=== PATIENT | female | born 1975 | race African-American/Black ===

== ENCOUNTER 2018-12-12 22:43 | Emergency (ER) | payer BC, MEDICAID ==
[~2018-12-12] VITALS: Ht 154.9 cm; Wt 104.5 kg
[2018-12-13 01:47] VITALS: BP 138/95
== END 2018-12-13 02:33 | disposition home or self-care (01) ==
LOC: EMS 22:44
DX: S39.012A Strain of muscle, fascia and tendon of lower back, initial encounter (principal); I10 Essential (primary) hypertension; X50.9XXA Other and unspecified overexertion or strenuous movements or postures, initial encounter; Y93.89 Activity, other specified; Y92.89 Other specified places as the place of occurrence of the external cause; Y99.8 Other external cause status

== ENCOUNTER 2022-05-16 08:44 | Emergency (ER) | payer MEDICAID, OTHER ==
[~2022-05-16] VITALS: Ht 152.4 cm; Wt 100.0 kg
[2022-05-16] MEDS ORDERED: ALBUTEROL SULFATE HFA 90 MCG/PUFF 8 GM INHALER IH ONE (09:00)
[2022-05-16] MEDS ORDERED: BACITRACIN 0.9 GM PACKET OINTMENT TP ONE (09:00)
[2022-05-16 09:13] VITALS: BP 142/79
[2022-05-16 12:05] LABS: COVID AG,FIA SOURCE NASAL SWAB
[2022-05-16 12:23] LABS: INFLUENZA TYPE A NEGATIVE FOR TYPE A (NEGATIVE); INFLUENZA TYPE B NEGATIVE FOR TYPE B (NEGATIVE)
[2022-05-16] MEDS ORDERED: IBUP-1554 PO (12:34)
== END 2022-05-16 13:17 | disposition home or self-care (01) ==
LOC: EMS 08:46
DX: J45.901 Unspecified asthma with (acute) exacerbation (principal); S90.121A Contusion of right lesser toe(s) without damage to nail, initial encounter; S60.212A Contusion of left wrist, initial encounter; S91.204A Unspecified open wound of right lesser toe(s) with damage to nail, initial encounter; I10 Essential (primary) hypertension; Z98.890 Other specified postprocedural states; Z20.822 Contact with and (suspected) exposure to COVID-19; V43.52XA Car driver injured in collision with other type car in traffic accident, initial encounter; Y93.89 Activity, other specified; Y92.410 Unspecified street and highway as the place of occurrence of the external cause; Y99.8 Other external cause status
CPT/HCPCS: 71045; 87804; 94640; 99284; J3535

== ENCOUNTER 2025-02-03 20:33 | Inpatient (IN) | payer OTHER ==
[~2025-02-03] VITALS: Ht 154.9 cm; Wt 124.0 kg
[~2025-02-03 20:33] MED LIST: IBUP-1554 PO
[2025-02-03] MEDS: FUROSEMIDE 20 MG/2 ML VIAL IVP ONE (22:44)
[2025-02-03] MEDS: NITROGLYCERIN 2% (1 GM=INCH) OINTMENT PACKET TP ONE (22:44)
[2025-02-03 23:04] LABS: PLATELET COUNT (AUTO) 286 K/uL (150-450); RED BLOOD CELL COUNT(AUTO) 4.71 MIL/uL (4.00-5.20); RED CELL DISTRIBUTION WIDTH 16.0 % (11.5-14.5); WHITE BLOOD COUNT (AUTO) 9.7 K/uL (4.5-11.0)
[2025-02-03] MEDS: IPRATROPIUM BROMIDE 0.5 MG/2.5 ML NEB SOLUTION NEB ONE (23:04)
[2025-02-03] MEDS: ALBUTEROL SULFATE 2.5 MG/0.5 ML NEB SOLUTION NEB ONE (23:04)
[2025-02-03 23:09] LABS: CALCIUM, TOTAL 9.3 mg/dL (8.8-10.5); CREATININE 1.25 mg/dL (0.60-1.30); GLOMERULAR FILTR. RATE CALC 55 mL/min (>60); GLUCOSE,RANDOM 100 mg/dL (70-110); SODIUM SERUM 143 mmol/L (136-145); UREA NITROGEN, BLOOD 11 mg/dL (7-18)
[2025-02-03 23:10] VITALS: PULSE 102; RESP 18; O2SAT 95
[2025-02-03 23:18] LABS: TROPONIN I-HIGH SENSITIVITY 60 ng/L (<51)
[2025-02-03 23:25] VITALS: PULSE 104; RESP 20; O2SAT 100
[2025-02-03 23:27] LABS: CREATINE KINASE, TOTAL ONLY 268 U/L (26-192)
[2025-02-03] MEDS ORDERED: ACETAMINOPHEN 325 MG TABLET PO PRN (23:45)
[2025-02-03] MEDS ORDERED: ONDANSETRON HCL 4 MG/2 ML VIAL IVP PRN (23:45)
[2025-02-04] VITALS (8 sets, daily range): BP systolic 132–151; BP diastolic 85–103; PULSE 95–108; RESP 18–20; TEMP 97.7–98.6; O2SAT 91–98
[2025-02-04] MEDS: HEPARIN SODIUM,PORCINE 5,000 UNITS/ML VIAL SQ SCH
[2025-02-04 01:56] LABS: TROPONIN I-HIGH SENSITIVITY 47 ng/L (<51)
[2025-02-04 02:19] LABS: PH,URINE DRUG SCREEN 7.0 (5.0-8.0)
[2025-02-04 02:20] LABS: APPEARANCE,URINE CLEAR (CLEAR); GLUCOSE, URINE (UA) NEGATIVE (NEGATIVE); LEUKOCYTE ESTERASE ,URINE TRACE (NEGATIVE); OCCULT BLOOD,URINE NEGATIVE (NEGATIVE); SPECIFIC GRAVITIY, URINE 1.006 (1.003-1.030)
[2025-02-04 02:21] LABS: NITRATE,URINE NEGATIVE (NEGATIVE)
[2025-02-04 02:22] LABS: SQUAMOUS EPITHELIAL CELL,UR Few /LPF (None Seen)
[2025-02-04 02:25] LABS: AMPHET/METH SCREEN,URINE POSITIVE (NEGATIVE); BARBITURATE SCREEN, URINE NEGATIVE (NEGATIVE); CANNABINOID SCREEN,URINE NEGATIVE (NEGATIVE); COCAINE SCREEN,URINE NEGATIVE (NEGATIVE); METHADONE SCREEN, URINE NEGATIVE (NEGATIVE)
[2025-02-04 02:28] LABS: ALCOHOL, URINE DRUG SCREEN NEGATIVE (NEGATIVE)
[2025-02-04 06:57] LABS: TROPONIN I-HIGH SENSITIVITY 51 ng/L (<51)
[2025-02-04] MEDS: DOCUSATE SODIUM 100 MG CAPSULE PO SCH (08:55)
[2025-02-04] MEDS: FAMOTIDINE 20 MG TABLET PO SCH (08:55)
[2025-02-04] MEDS: CLOTRIMAZOLE 1%/BETAMETH DIP 0.05% 15 GM CREAM TP SCH (20:28)
[2025-02-04] MEDS ORDERED: 0.9% SODIUM CHLORIDE 5 ML NEB SOLUTION NEB ONE (21:54)
[2025-02-04] MEDS: ALBUTEROL SULFATE 2.5 MG/0.5 ML NEB SOLUTION NEB PRN (21:55)
[2025-02-05] VITALS: BP 134/78; PULSE 58; RESP 19; TEMP 98.2; O2SAT 94
[2025-02-05 04:03] VITALS: BP 150/84; PULSE 107; RESP 19; TEMP 98.8; O2SAT 96
[2025-02-05 07:56] VITALS: BP 137/92; PULSE 110; RESP 17; TEMP 98.1; O2SAT 100
[2025-02-05] MEDS: FUROSEMIDE 20 MG TABLET PO SCH (11:19)
[2025-02-05] MEDS: METOPROLOL SUCCINATE 25 MG ER TABLET PO SCH (11:19)
[2025-02-05 12:05] VITALS: BP 118/70; PULSE 106; RESP 17; TEMP 97.7; O2SAT 99
[2025-02-05 16:00] VITALS: BP 135/87; PULSE 100; RESP 19; TEMP 97.5; O2SAT 97
[2025-02-05 20:22] VITALS: BP 108/77; PULSE 103; RESP 20; TEMP 98.2; O2SAT 94
[2025-02-06 00:46] VITALS: BP 133/75; PULSE 101; RESP 18; TEMP 98.6; O2SAT 95
[2025-02-06 04:00] VITALS: BP 134/86; PULSE 100; RESP 19; TEMP 98.6; O2SAT 93
[2025-02-06 08:28] VITALS: BP 94/68; PULSE 101; RESP 19; TEMP 98.4; O2SAT 98
[2025-02-06] MEDS ORDERED: POTA8TAB71 PO (10:05)
[2025-02-06] MEDS ORDERED: FURO20TA5 PO (10:05)
[2025-02-06] MEDS ORDERED: ALBU18HF12 IH (10:06)
== END 2025-02-06 10:30 | disposition home or self-care (01) | DRG 133 ==
LOC: EMS 20:33 → EDH 23:44 → 5S 02-04 03:10
PROVIDERS: ADMIT Internal Medicine; ATTEND Internal Medicine
DX: J96.01 Acute respiratory failure with hypoxia (principal); E44.0 Moderate protein-calorie malnutrition; I11.0 Hypertensive heart disease with heart failure; I95.9 Hypotension, unspecified; J45.901 Unspecified asthma with (acute) exacerbation; Z68.43 Body mass index [BMI] 50.0-59.9, adult; I50.22 Chronic systolic (congestive) heart failure; E66.01 Morbid (severe) obesity due to excess calories; F15.10 Other stimulant abuse, uncomplicated; G47.33 Obstructive sleep apnea (adult) (pediatric); Z83.3 Family history of diabetes mellitus
CPT/HCPCS: 71045; 80048; 80307; 81001; 82550; 83880; 84484; 85025; 85610; 85730; 93005; 93306; 94640; 96374; 99291; G0378; J1644; J1938; J2919; 36415-L1; 36415-TC; J7613